=== PATIENT | female | born 1990 | race American Indian/Alaskan Native ===

== ENCOUNTER 2017-05-02 08:46 | Emergency (ER) | payer MEDICAID, OTHER ==
[2017-05-02 08:59] VITALS: TEMP 98.6; BMI 22.6
--- NOTE | 2017-05-02 09:10 | ED PDOC ---
Arrival/HPI - General Historian: Patient - History of Present Illness Time/Duration: < week (3 days ) Symptom Onset: Gradual Symptom Course: Unchanged Quality: Tightness Severity Level: Moderate Activities at Onset: Rest Context: Home <Kasandra Parsons - Last Filed: 05/02/17 10:36> <Qasim Santiago - Last Filed: 05/02/17 10:37> - General Chief Complaint: Cough, Cold, Congestion Time Seen by Provider: 05/02/17 08:55 - History of Present Illness Narrative History of Present Illness (Text): 05/02/17 09:31 This is a 26Y F with PMH of asthma who came to ED for cough and congestion x 3 days. She reports she has a cough with yellow sputum with clear rhinorrhea. Patient states she did have some wheezing yesterday and did lose her inhaler. She denies fever, chills, CP, SOB, n/v/d, numbness/tingling, sore throat or ear pain. She works at a [employer] and the person sitting next to her had a cold last this week. (Kasandra Parsons) Past Medical History - Provider Review Nursing Documentation Reviewed: Yes - Travel History Have you recently traveled outside [place] w/in the past 3 mons?: No - Infectious Disease Hx of Infectious Diseases: None - Pulmonary Hx Asthma: Yes - Psychiatric Hx Substance Use: No <Kasandra Parsons - Last Filed: 05/02/17 10:36> Family/Social History - Physician Review Nursing Documentation Reviewed: Yes Family/Social History: Other (asthma) Smoking Status: Never Smoked Hx Alcohol Use: No Hx Substance Use: No <Kasandra Parsons - Last Filed: 05/02/17 10:36> Allergies/Home Meds <Kasandra Parsons - Last Filed: 05/02/17 10:36> <Qasim Santiago - Last Filed: 05/02/17 10:37> Allergies/Adverse Reactions: Allergies No Known Allergies Allergy (Verified 11/30/15 08:40) Review of Systems - Physician Review All systems were reviewed & negative as marked: Yes - Review of Systems Constitutional: Normal. absent: Fevers ENT: Rhinorrhea. absent: Sore Throat Respiratory: SOB, Cough, Sputum (yellow) Cardiovascular: Normal. absent: Chest Pain Gastrointestinal: Normal. absent: Abdominal Pain, Diarrhea, Nausea, Vomiting Genitourinary Female: Normal. absent: Dysuria, Frequency, Hematuria Musculoskeletal: Normal. absent: Arthralgias Skin: Normal Neurological: Normal Endocrine: Normal Hemo/Lymphatic: Normal Psychiatric: Normal <Kasandra Parsons - Last Filed: 05/02/17 10:36> Physical Exam Vital Signs Reviewed: Yes Temperature: Afebrile Blood Pressure: Normal Pulse: Regular Respiratory Rate: Normal Appearance: Positive for: Well-Appearing, Non-Toxic, Comfortable Pain Distress: None Mental Status: Positive for: Alert and Oriented X 3 - Systems Exam Head: Present: Atraumatic, Normocephalic Pupils: Present: PERRL Extroacular Muscles: Present: EOMI Conjunctiva: Present: Normal Ears: Present: Normal, NORMAL TM, Normal Canal. No: Erythema, TM Bulging, Fluid , TM Perf Mouth: Present: Moist Mucous Membranes Pharnyx: Present: ERYTHEMA (mild ). No: EXUDATE, TONSILS ENLARGED, Peritonsilar Swelling, Uvular Deviation Nose (Internal): Present: Normal Inspection, Clear Mucous Neck: Present: Normal Range of Motion Respiratory/Chest: Present: Clear to Auscultation, Good Air Exchange. No: Respiratory Distress, Accessory Muscle Use, Wheezes, Rales Cardiovascular: Present: Regular Rate and Rhythm, Normal S1, S2. No: Murmurs Abdomen: Present: Normal Bowel Sounds. No: Tenderness, Distention, Peritoneal Signs Upper Extremity: Present: Normal Inspection. No: Cyanosis, Edema Lower Extremity: Present: Normal Inspection. No: Edema Neurological: Present: GCS=15, CN II-XII Intact, Speech Normal Skin: Present: Warm, Dry, Normal Color. No: Rashes Psychiatric: Present: Alert, Oriented x 3, Normal Insight, Normal Concentration <Kasandra Parsons - Last Filed: 05/02/17 10:36> <Qasim Santiago - Last Filed: 05/02/17 10:37> Vital Signs Temp Pulse Resp BP Pulse Ox 05/02/17 08:49 98.6 F 80 20 106/72 99 Medical Decision Making Re-evaluation Time: 10:33 <Kasandra Parsons - Last Filed: 05/02/17 10:36> - RAD Interpretation Certified Hand Therapist: Radiologist <Qasim Santiago - Last Filed: 05/02/17 10:37> ED Course and Treatment: 05/02/17 09:34 Impression: This is a 26Y F with PMH asthma here for cough and congestion x 3 days. Differential Diagnosis included but are not limited to: URI versus asthma exacerbation r/o pneumonia Plan: -- CXR -- Duoneb -- Reassess and disposition Progress Notes: 05/02/17 10:33 CXR showed no active disease. On reevaluation the patient feels better and is in no acute distress. I have discussed the results and plan with the patient, who expresses understanding. Patient given the opportunity to ask question, all questions were answered and there is agreement with the plan to discharge the patient home with prescription for cough. Patient is stable for discharge. Patient was instructed to follow up with physician/clinic in 1-2 days or return if symptoms persist/worsen or new concerning symptoms arise. (Kasandra Parsons) 05/02/17 Patient Seen With Resident: In agreement with resident note which contains more details about the patient. Patient was seen and evaluated with resident. Came up with plan and treatment together. (Qasim Santiago) - RAD Interpretation Radiology Orders: 05/02/17 09:16 CHEST TWO VIEWS (PA/LAT) [RAD] Stat - Medication Orders Current Medication Orders: Discontinued Medications Albuterol/Ipratropium (Duoneb 3 Mg/0.5 Mg (3 Ml) Ud) 3 ml IH STAT STA Stop: 05/02/17 09:17 Last Admin: 05/02/17 09:28 Dose: 3 ml <Kasandra Parsons - Last Filed: 05/02/17 10:36> - PA / PHOTO MASK PROCESSOR / Resident Statement / has reviewed & agrees with the documentation as recorded. MD/DO has examined the patient and agrees with the treatment plan. - Scribe Statement The provider has reviewed the documentation as recorded by the Scribe <Qasim Santiago - Last Filed: 05/02/17 10:37> - Scribe Statement Kandice Lucio Provider Scribe Attestation: All medical record entries made by the Scribe were at my direction and personally dictated by me. I have reviewed the chart and agree that the record accurately reflects my personal performance of the history, physical exam, medical decision making, and the department course for this patient. I have also personally directed, reviewed, and agree with the discharge instructions and disposition. (Qasim Santiago) Disposition/Present on Arrival - Present on Arrival Any Indicators Present on Arrival: No History of DVT/PE: No History of Uncontrolled Diabetes: No Urinary Catheter: No History Surgical Site Infection Following: None - Disposition Have Diagnosis and Disposition been Completed?: Yes Disposition Time: 10:31 Patient Plan: Discharge <Kasandra Parsons - Last Filed: 05/02/17 10:36> <Qasim Santiago - Last Filed: 05/02/17 10:37> - Disposition Diagnosis: Upper respiratory infection Disposition: HOME/ ROUTINE Patient Problems: Current Active Problems Problem Status Onset Upper respiratory infection Acute Condition: FAIR Print Language: UGANDAN Additional Instructions: Ms. Tsai, thank you for letting us take care of you today. Your provider was Dr. Parsons. You were treated for cough/congestion. The emergency medical care you received today was directed at your acute symptoms. If you were prescribed any medication, please fill it and take as directed. It may take several days for your symptoms to resolve. Return to the Emergency Department if your symptoms worsen, do not improve, or if you have any other problems. Please contact your doctor or call one of the physicians/clinics you have been referred to that are listed on the Patient Visit Information form that is included in your discharge packet. Bring any paperwork you were given at discharge with you along with any medications you are taking to your follow up visit. Our treatment cannot replace ongoing medical care by a primary care provider (PCP) outside of the emergency department. Thank you for allowing the [facility] team to be part of your care today. If you had an X-Ray or CT scan: A Radiologist will review the ED reading if any change in treatment is needed we will contact you. Prescriptions: Albuterol HFA [Ventolin HFA 90 mcg/actuation (8 g)] 2 puff IH [id number] PRN #1 inhaler PRN Reason: Shortness Of Breath guaiFENesin/Codeine [Codeine/Guaifenesin 10 MG/5 Ml-100 MG/5 Ml 5] 10 ml PO Q6H PRN #1 bottle PRN Reason: Cough Forms: [facility] (Syrian)
[2017-05-02] MEDS ORDERED: Albuterol-Ipratrop 3 mg / 0.5 (3 ml) UD IH STA (09:16)
--- NOTE | 2017-05-02 10:59 | RAD ---
HISTORY: Shortness of breath COMPARISON: 12/08/2015. TECHNIQUE: Chest PA and lateral FINDINGS: LUNGS: The lungs are well inflated and clear. PLEURA: No significant pleural effusion identified. No pneumothorax apparent. CARDIOVASCULAR: Normal. OSSEOUS STRUCTURES: No significant abnormalities. VISUALIZED UPPER ABDOMEN: Normal. OTHER FINDINGS: None. IMPRESSION: No active pulmonary disease.
[2017-05-02 11:17] VITALS: BP 108/82; PULSE 82; RESP 16; O2SAT 100
== END 2017-05-02 11:18 | disposition home or self-care (01) ==
LOC: ED 08:46
DX: J06.9 Acute upper respiratory infection, unspecified (principal)

== ENCOUNTER 2017-10-31 17:49 | Emergency (ER) | payer MEDICAID, OTHER ==
[2017-10-31 17:49] VITALS: BMI 22.6
--- NOTE | 2017-10-31 17:53 | ED PDOC ---
Arrival/HPI - General Time Seen by Provider: 10/31/17 17:52 Historian: Patient - History of Present Illness Narrative History of Present Illness (Text): 10/31/17 17:52 27 year old female, no significant pmh, nkda, complaining of nasal congestion and frontal sinus pressure x 1 week. Nasal congestion, associated with frontal sinus pressure, aggravated by bending forward, no night sweat, no dizziness, more common at nigh, no rash, no neck stiffness, no change in vision, no other medical or psychological complaints. Past Medical History - Provider Review Nursing Documentation Reviewed: Yes - Infectious Disease Hx of Infectious Diseases: None - Pulmonary Hx Asthma: Yes - Psychiatric Hx Substance Use: No Family/Social History - Physician Review Nursing Documentation Reviewed: Yes Family/Social History: Unknown Family HX Smoking Status: Never Smoked Hx Alcohol Use: No Hx Substance Use: No Allergies/Home Meds Allergies/Adverse Reactions: Allergies No Known Allergies Allergy (Verified 10/31/17 18:03) Review of Systems - Review of Systems Constitutional: absent: Fatigue, Fevers Eyes: absent: Vision Changes ENT: Rhinorrhea, Sinus Congestion Respiratory: absent: SOB, Cough, Sputum Cardiovascular: absent: Chest Pain Gastrointestinal: absent: Abdominal Pain, Diarrhea, Nausea, Vomiting Skin: absent: Rash, Pruritis Neurological: absent: Headache, Dizziness Psychiatric: absent: Anxiety, Depression, Suicidal Ideation Physical Exam Vital Signs Reviewed: Yes Vital Signs Temp Pulse Resp BP Pulse Ox 10/31/17 20:00 93 H 18 97 10/31/17 19:34 99.0 F 99 H 18 106/72 99 10/31/17 18:54 101 H 18 102/68 99 10/31/17 18:00 99.4 F 102 H 18 101/71 100 Temperature: Afebrile Blood Pressure: Normal Pulse: Tachycardic Respiratory Rate: Normal Appearance: Positive for: Well-Appearing, Non-Toxic, Comfortable Pain Distress: Moderate Mental Status: Positive for: Alert and Oriented X 3 - Systems Exam Head: Present: Atraumatic, Normocephalic, Other (+ttp on the rt. maxillary sinus , no periorbital swelling, no streaking or ulcers. ) Pupils: Present: PERRL Extroacular Muscles: Present: EOMI Conjunctiva: Present: Normal Ears: Present: NORMAL TM, Normal Canal. No: Erythema Mouth: Present: Moist Mucous Membranes Neck: Present: Normal Range of Motion Respiratory/Chest: Present: Clear to Auscultation, Good Air Exchange. No: Respiratory Distress, Accessory Muscle Use Cardiovascular: Present: Regular Rate and Rhythm, Normal S1, S2. No: Murmurs Abdomen: Present: Normal Bowel Sounds. No: Tenderness, Distention, Peritoneal Signs Back: Present: Normal Inspection Upper Extremity: Present: Normal Inspection. No: Cyanosis, Edema Lower Extremity: Present: Normal Inspection. No: Edema Neurological: Present: GCS=15, Speech Normal, Motor Func Grossly Intact, Gait Normal, Memory Normal Skin: Present: Warm, Dry, Normal Color. No: Rashes Lymphatic: No: Cervical Adenopathy Psychiatric: Present: Alert, Oriented x 3, Normal Insight, Normal Concentration Medical Decision Making ED Course and Treatment: 10/31/17 18:11 -toradol/tylenol/augmentin -observe and reassess 10/31/17 20:01 -Pt. feels much better, no neck stiffness, walking around, afebrile, no emergent further work up indicated -Discahrge home with augmentin, flonase, motrin, claritine d24, stay hydrated, follow up with your own pmd and ENT within 2 days, return to the ER for any new or worsening signs or symptoms. - RAD Interpretation Radiology Orders: 10/31/17 18:20 CHEST TWO VIEWS (PA/LAT) [RAD] Stat FINDINGS: Lungs: Lungs are well aerated. No nodule/s or focal consolidation is appreciated. Pleural space: No pneumothorax or pleural effusion. Heart: Unremarkable. Mediastinum: Unremarkable. Bones/joints: Unremarkable. IMPRESSION: Normal chest. No active disease. No change compared with prior study. Thank you for allowing us to participate in the care of your patient. Dictated and Authenticated by: Vinod Brooks MD 10/31/2017 7:20 PM Eastern Time ([place] & [place]) Room Maid: Radiologist - Medication Orders Current Medication Orders: Sodium Chloride (Sodium Chloride 0.9%) 1,000 mls @ 999 mls/hr IV .Q1H1M STA Stop: 10/31/17 20:37 Discontinued Medications Acetaminophen (Tylenol 325mg Tab) 650 mg PO STAT STA Stop: 10/31/17 18:12 Last Admin: 10/31/17 18:27 Dose: 650 mg MAR Pain/Vitals Document 10/31/17 18:27 LA (Rec: 10/31/17 18:28 LA [id number]) Pain Reassessment Is This A Pain ReAssessment? No Sleep Is patient sleeping during reassessment? No Presence of Pain Presence of Pain Yes Pain Scale Used Pain Scale Used Numeric Location Pain Location Body Site Ear Description Constant Intensity 6 Scale Used Numeric Amoxicillin/Clavulanate Potassium (Augmentin 875 Mg-125 Mg Tab) 1 tab PO STAT STA PRN Reason: Protocol Stop: 10/31/17 18:08 Last Admin: 10/31/17 18:29 Dose: 1 tab Ketorolac Tromethamine (Toradol) 60 mg IM STAT STA Stop: 10/31/17 18:08 Last Admin: 10/31/17 18:28 Dose: 60 mg MAR Pain Assessment Document 10/31/17 18:28 LA (Rec: 10/31/17 18:29 LA [id number]) Pain Reassessment Is this a pain reassessment? No Sleep Is patient sleeping during reassessment? No Presence of Pain Presence of Pain Yes Pain Scale Used Pain Scale Used Numeric Location Pain Location Body Site Ear Description Description Constant Pain Behavior Guarding IM Administration Charges Document 10/31/17 18:28 LA (Rec: 10/31/17 18:29 LA [id number]) Charges for Administration # of IM Administrations 1 - PA / UTILIZATION MANAGEMENT UM NURSE / Resident Statement / has reviewed & agrees with the documentation as recorded. Disposition/Present on Arrival - Present on Arrival Any Indicators Present on Arrival: No History of DVT/PE: No History of Uncontrolled Diabetes: No Urinary Catheter: No History of Decub. Ulcer: No History Surgical Site Infection Following: None - Disposition Have Diagnosis and Disposition been Completed?: Yes Diagnosis: Sinusitis Disposition: HOME/ ROUTINE Disposition Time: 18:12 Patient Plan: Discharge Patient Problems: Current Active Problems Problem Status Onset Sinusitis Acute Condition: IMPROVED Discharge Instructions (ExitCare): Sinusitis in Adults Additional Instructions: -Discharge home with augmentin, flonase, claritin d24, motrin, stay hydrated, bed rest, follow up with your own pmd and ENT within 2 days, return to the ER for any new or worsening signs or symptoms. Prescriptions: Amoxicillin/Clavulanate [Augmentin 875 MG-125 MG] 1 tab PO BID #14 tab Fluticasone Propionate [Flonase] 1 spr NS DAILY PRN #1 spr PRN Reason: Other Ibuprofen [Motrin Tab] 600 mg PO TID PRN #30 tab PRN Reason: Other Loratadine/Pseudoephedrine [Claritin-D 24 Hour Tablet] 1 each PO DAILY #7 tab.er.24h Referrals: Fredy Mccarthy DO [Staff Provider] - Follow up with primary [facility] at [facility] [place] [Outside] - Follow up with primary Forms: WORK NOTE
[2017-10-31 18:03] VITALS: RESP 18
[2017-10-31] MEDS ORDERED: Amoxicillin-Clav 875-125 mg Tab PO STA (18:07)
[2017-10-31] MEDS: Sodium Chloride 0.9% 1,000 ML IV STA ×2 (19:37→19:45)
[2017-10-31 20:01] VITALS: PULSE 92
[2017-10-31 20:08] VITALS: BP 101/66; TEMP 99; O2SAT 98
--- NOTE | 2017-11-01 09:08 | RAD ---
HISTORY: medical clearance COMPARISON: Chest radiographs 05/02/2017. TECHNIQUE: Chest PA and lateral FINDINGS: LUNGS: No active pulmonary disease. PLEURA: No significant pleural effusion identified. No pneumothorax apparent. CARDIOVASCULAR: Normal. OSSEOUS STRUCTURES: No significant abnormalities. VISUALIZED UPPER ABDOMEN: Normal. OTHER FINDINGS: None. IMPRESSION: No interval acute cardiopulmonary disease appreciated. Yes
== END 2017-10-31 20:25 | disposition home or self-care (01) ==
LOC: ED 17:49
DX: J32.9 Chronic sinusitis, unspecified (principal)
CPT/HCPCS: 71046; 96360; 96372; 99284; J1885; J7040

== ENCOUNTER 2018-06-11 22:25 | Emergency (ER) | payer SELFPAY ==
[2018-06-11 23:20] VITALS: BMI 25.0
[2018-06-11 23:24] VITALS: PULSE 85; RESP 18; TEMP 98.2
--- NOTE | 2018-06-11 23:45 | ED PDOC ---
Arrival/HPI - General Chief Complaint: Abdominal Pain Time Seen by Provider: 06/11/18 23:09 Historian: Patient - History of Present Illness Narrative History of Present Illness (Text): 06/11/18 23:43 27 year old female, whose past medical history includes asthma, presents to the emergency department with vaginal bleeding and lower abdominal pain, today. Patient states she went to her PMD yesterday and found out she was 6 weeks . Patient states today shes been having pain in her lower abdomen and realized she was bleeding. Patient informs that the bleeding is not similar to spotting, its much more. Patient denies any fevers, chills, headache, dizziness, chest pain, shortness of breath, cough, nausea, vomiting, diarrhea, back pain, neck pain, or any other complaint. Time/Duration: Prior to Arrival Symptom Onset: Gradual Symptom Course: Unchanged Activities at Onset: Light Past Medical History - Provider Review Nursing Documentation Reviewed: Yes - Infectious Disease Hx of Infectious Diseases: None - Pulmonary Hx Asthma: Yes - Psychiatric Hx Substance Use: No - Anesthesia Hx Anesthesia: No Hx Anesthesia Reactions: No Hx Malignant Hyperthermia: No Family/Social History - Physician Review Nursing Documentation Reviewed: Yes Family/Social History: No Known Family HX Smoking Status: Never Smoked Hx Alcohol Use: No Hx Substance Use: No Allergies/Home Meds Allergies/Adverse Reactions: Allergies No Known Allergies Allergy (Verified 10/31/17 18:03) Review of Systems - Physician Review All systems were reviewed & negative as marked: Yes - Review of Systems Constitutional: absent: Fevers, Night Sweats Respiratory: absent: SOB, Cough Cardiovascular: absent: Chest Pain Gastrointestinal: Abdominal Pain (lower abdomen). absent: Diarrhea, Nausea, Vomiting Genitourinary Female: Vaginal Bleeding Musculoskeletal: absent: Back Pain, Neck Pain Neurological: absent: Headache, Dizziness Physical Exam - Physical Exam Narrative Physical Exam (Text): 06/11/18 23:46 Gen: VS reviewed, alert, well developed, well nourished, nontoxic, mild distress. ENT: normal pharynx. Eye: EOMI, PERRL. Neck: no JVD, supple, no adenopathy. CV: regular rate, regular rhythm, no rubs, no murmur, no gallops, S1, S2, pulses equal and strong. Pulm: no distress, clear to auscultation, no wheeze, no rhonchi, breath sounds equal, no rales. Abd: mild diffuse pelvic tenderness, no guarding, no rebound, no rigidity, normal bowel sounds. Ext: no edema. Skin: good color, no rash, no cyanosis. Psych: responds appropriately to questions, normal affect. Neuro: oriented x 3, CN2-12 intact grossly, motor intact, sensation intact. Vital Signs Reviewed: Yes Vital Signs Temp Pulse Resp BP Pulse Ox 06/11/18 23:24 98.2 F 85 18 108/55 L 97 Temperature: Afebrile Blood Pressure: Hypotensive Pulse: Regular Respiratory Rate: Normal Appearance: Positive for: Well-Appearing, Non-Toxic, Comfortable Pain Distress: None Mental Status: Positive for: Alert and Oriented X 3 Medical Decision Making ED Course and Treatment: 06/11/18 23:47 Impression: 27 year old female presents with vaginal bleeding. Plan: -- Labs -- Transvaginal US -- Reassess and disposition Prior Visits: Notes and results from previous visits were reviewed. Progress Notes: 06/12/18 03:20 patient feels well and ready to go home. Patient was seen for vaginal bleeding and early gestation. US and labs were done to workup for possible ectopic . 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 - RAD Interpretation Narrative RAD Interpretations (Text): 06/12/18 03:21 Ultrasound pelvis, transvaginal. Indication: Spotting. Technique: Transvaginal ultrasound images were obtained. Findings: Anteverted uterus measuring 11.4x6.5x8.3 cm. Intramural anterior myometrial wall uterine fibroid measuring 1.5x1.2x1.1 cm. Single, intrauterine gestational sac is noted. Mean gestational sac diameter is 1.2 cm which corresponds to an estimated gestational age of 5 weeks and 2 days. Yolk sac is noted measuring 3.1 mm. No pole is identified. No cardiac activity is noted. Normal right ovary. Normal left ovary. Impression: Single, intrauterine gestational sac. No pole is identified. 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 I have reviewed the chart and agree that the record accurately reflects my personal performance of the history, physical exam, medical decision making, and the department course for this patient. I have also personally directed, reviewed, and agree with the discharge instructions and disposition. Disposition/Present on Arrival - Present on Arrival Any Indicators Present on Arrival: No History of DVT/PE: No History of Uncontrolled Diabetes: No Urinary Catheter: No History of Decub. Ulcer: No History Surgical Site Infection Following: None - Disposition Have Diagnosis and Disposition been Completed?: Yes Diagnosis: Threatened Disposition: HOME/ ROUTINE Disposition Time: 03:20 Patient Plan: Discharge Condition: STABLE Discharge Instructions (ExitCare): Threatened Miscarriage (DC) Additional Instructions: Follow up with your manager chemistry as soon as possible-preferably within one week. Return for any new or worsening symptoms. KENAN MOLINA, thank you for letting us take care of you today. Your pr ovider was Dr. Vivek Bills and you were treated for vaginal bleeding. The emergency medical care you received today was directed at your acute symptoms. If you were prescribed any medication, please fill it and take as directed. It may take several days for your symptoms to resolve. Return to the Emergency Department if your symptoms worsen, do not improve, or if you have any other problems. Please contact your doctor or call one of the physicians/clinics you have been referred to that are listed on the Patient Visit Information form that is included in your discharge packet. Bring any paperwork you were given at discharge with you along with any medications you are taking to your follow up visit. Our treatment cannot replace ongoing medical care by a primary care provider outside of the emergency department. Thank you for allowing the [facility] team to be part of your care today. If you had an X-Ray or CT scan: A Radiologist will review the ED reading if any change in treatment is needed we will contact you. If you had a blood, urine, or wound culture: It will take several days for the results, if any change in treatment is needed we will contact you. If you had an STI test: It will take 48 hours for the results. Please call after 1 week if you have not heard back. Forms: [facility] [employer] [facility] (Niuean), WORK NOTE
[2018-06-12 00:07] LABS: BASO # 0.02 K/mm3 (0.0-2.0); BASO % 0.3 % (0.0-3.0); EOS # 0.1 (0.0-0.7); EOS % 1.7 % (1.5-5.0); GRAN # 3.7 (1.4-6.5); GRAN % 53.1 % (50.0-68.0); HEMOGLOBIN 12.4 g/dL (12.0-16.0); LYMPH # 2.6 (1.2-3.4); LYMPH % 37.6 % (22.0-35.0); MEAN CELL VOLUME 86.8 fl (80.0-105.0); MEAN CORPUSCULAR HEMOGLOBIN 30.3 pg (25.0-35.0); MEAN CORPUSCULAR HGB CONC 34.9 g/dl (31.0-37.0); MEAN PLATELET VOLUME 8.6 fl (7.0-11.0); MONO # 0.5 (0.1-0.6); MONO % 7.3 % (1.0-6.0); RBC 4.09 10^6/uL (3.5-6.1)
[2018-06-12 03:53] VITALS: BP 110/75; O2SAT 100
--- NOTE | 2018-06-12 13:08 | US ---
Date of service: 06/12/2018 PROCEDURE: HISTORY: early gestation, bleeding, pain COMPARISON: TECHNIQUE: FINDINGS: The uterus measures 11.5 x 6.5 x 8.3 centimeters. There is a 1.5 centimeter myoma. There is an intrauterine gestational sac corresponding to 5 weeks and 2 days gestational age. A yolk sac is present. No pole is observed. The ovaries are unremarkable. No free fluid in the pelvis. IMPRESSION: Five week intrauterine gestational sac. No evidence of pole. Recommend short-term interval follow-up and correlation with beta HCG levels. Ectopic not excluded.
== END 2018-06-12 03:27 | disposition home or self-care (01) ==
LOC: ED 22:25
DX: O20.0 Threatened abortion (principal); Z3A.01 Less than 8 weeks gestation of pregnancy

== ENCOUNTER 2018-08-16 22:03 | Emergency (ER) | payer MEDICAID ==
[2018-08-16 22:24] VITALS: BMI 27.4
[2018-08-16 22:54] VITALS: RESP 18; O2SAT 99
--- NOTE | 2018-08-16 23:09 | ED PDOC ---
Arrival/HPI - General Chief Complaint: Female Genitourinary Time Seen by Provider: 08/16/18 22:30 Historian: Patient - History of Present Illness Narrative History of Present Illness (Text): 08/16/18 23:09 28 yo F ~14 wks , complaining of 2 day h/o dry cough with chest pressure only with coughing. Otherwise reports no shortness of breath, CP, fever, chills, abdominal pain, vaginal bleeding, recent travel, sick contacts. Has no other complaints. Past Medical History - Infectious Disease Hx of Infectious Diseases: None - Pulmonary Hx Asthma: Yes - Psychiatric Hx Substance Use: No - Anesthesia Hx Anesthesia: No Hx Anesthesia Reactions: No Hx Malignant Hyperthermia: No Family/Social History Family/Social History: No Known Family HX Smoking Status: Never Smoked Hx Alcohol Use: No Hx Substance Use: No Allergies/Home Meds Allergies/Adverse Reactions: Allergies No Known Allergies Allergy (Verified 08/16/18 22:28) Review of Systems - Review of Systems Constitutional: absent: Fatigue, Fevers ENT: absent: Sore Throat, Rhinorrhea Respiratory: Cough. absent: SOB, Sputum Cardiovascular: absent: Chest Pain, Palpitations Gastrointestinal: Nausea (related to ), Vomiting (related to ). absent: Abdominal Pain, Diarrhea, Food Intolerance Genitourinary Female: absent: Dysuria Musculoskeletal: absent: Arthralgias, Back Pain Skin: absent: Rash, Pruritis, Skin Lesions Neurological: absent: Headache, Dizziness Physical Exam Vital Signs Temp Pulse Resp BP Pulse Ox 08/16/18 22:53 98.1 F 72 18 118/71 99 Temperature: Afebrile Blood Pressure: Normal Pulse: Regular Respiratory Rate: Normal Appearance: Positive for: Well-Appearing, Non-Toxic, Comfortable Pain Distress: None Mental Status: Positive for: Alert and Oriented X 3 - Systems Exam Head: Present: Atraumatic, Normocephalic Pupils: Present: PERRL Extroacular Muscles: Present: EOMI Conjunctiva: Present: Normal Ears: Present: Normal, NORMAL TM. No: Erythema Mouth: Present: Moist Mucous Membranes Pharnyx: Present: Normal. No: ERYTHEMA, EXUDATE Neck: Present: Normal Range of Motion. No: Meningeal Signs, Lymphadenopathy Respiratory/Chest: Present: Clear to Auscultation, Good Air Exchange. No: Respiratory Distress, Accessory Muscle Use Cardiovascular: Present: Regular Rate and Rhythm, Normal S1, S2. No: Murmurs Abdomen: No: Tenderness, Distention, Peritoneal Signs Back: Present: Normal Inspection Upper Extremity: Present: Normal Inspection. No: Cyanosis, Edema Lower Extremity: Present: Normal Inspection. No: Edema Neurological: Present: GCS=15, CN II-XII Intact, Speech Normal, Motor Func Grossly Intact, Normal Sensory Function Skin: Present: Warm, Dry, Normal Color. No: Rashes Psychiatric: Present: Alert, Oriented x 3, Normal Insight, Normal Concentration Medical Decision Making ED Course and Treatment: 08/16/18 23:07 EKG: ST at 107 bpm, (-) acute ST changes, as read by PA. Advised to follow up with primary care physician in 1-2 days without fail. Advised to take medication as prescribed. Return to the emergency room at any time for any new or worsening symptoms. Patient states she fully agrees with and understands discharge instructions. States that she agrees with the plan and disposition. Verbalized and repeated discharge instructions and plan. I have given the patient opportunity to ask any additional questions. - PA / [employer] / Resident Statement MD/ has reviewed & agrees with the documentation as recorded. Disposition/Present on Arrival - Present on Arrival Any Indicators Present on Arrival: No History of DVT/PE: No History of Uncontrolled Diabetes: No Urinary Catheter: No History of Decub. Ulcer: No History Surgical Site Infection Following: None - Disposition Have Diagnosis and Disposition been Completed?: Yes Diagnosis: Upper respiratory infection Disposition: HOME/ ROUTINE Disposition Time: 23:00 Patient Plan: Discharge Condition: STABLE Discharge Instructions (ExitCare): Viral Upper Respiratory Infection, Adult (DC) Additional Instructions: Thank you for letting us take care of you today. You were treated for cough, URI. The emergency medical care you received today was directed at your acute symptoms. If you were prescribed any medication, please fill it and take as di rected. It may take several days for your symptoms to resolve. Return to the Emergency Department if your symptoms worsen, do not improve, or if you have any other problems. Please contact your doctor in 2 days for re-evaluation and follow up. Bring any paperwork you were given at discharge with you along with any medications you are taking to your follow up visit. Our treatment cannot replace ongoing medical care by a primary care provider (PCP) outside of the emergency department. Thank you for allowing the [facility] team to be part of your care today. Prescriptions: Metoclopramide HCl [Reglan] 10 mg PO TID PRN #20 tablet PRN Reason: Nausea/Vomiting Forms: [employer] (Bul[place]ian), WORK NOTE
[2018-08-16 23:21] VITALS: TEMP 98.7
[2018-08-16 23:24] VITALS: BP 116/81; PULSE 85
--- NOTE | 2018-08-17 10:31 | CARD ---
APPROVED REPORT Date of service: 08/16/2018 EKG Measurement Heart [id number] <Conclusion> Sinus tachycardia Otherwise normal ECG
== END 2018-08-16 23:51 | disposition home or self-care (01) ==
LOC: ED 22:03
DX: J06.9 Acute upper respiratory infection, unspecified (principal)